=== PATIENT | female | born 1935 | race Caucasian/White ===

== ENCOUNTER 2024-06-22 10:35 | Outpatient (AMB) | payer OTHER, SELFPAY ==
--- NOTE | 2024-06-22 10:53 | A.OFFVIS_ITS ---
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 The patient states that she twisted her knee while getting out of bed in February. At that time she had ?excruciating pain? in her right knee. Over the last few weeks her pain has improved significantly. She reports mild discomfort in her knee. She denies any locking or giving way. She has taken Aleve and Tylenol which gave her mild relief. Allergies No Known Allergies Allergy (Verified 06/22/24 10:57) Medication List - Last Reconciled 06/22/24 by Nahid Morocho MD dorzolamide-timolol 22.3-6.8 mg/mL ophthalmic (eye) Physical Exam Vital Signs: BMI result Body Mass Index 20.4 Const Other: Well-nourished well-developed very friendly female awake alert and oriented x3 in no acute distress Extrem Other: Bilateral lower extremity examination shows good capillary refill, no skin lesions noted, normal sensation light touch Right knee examination shows a minimal effusion, mild crepitus with range of motion, no instability Results Reviewed Results Reviewed: X-rays of the patient's right knee show mild diffuse joint space narrowing, no acute bony abnormalities Assessment & Plan Assessment & Plan (1) Arthritis of right knee: Code(s): M17.11 - Unilateral primary osteoarthritis, right knee Category: Medical Plan Ms. Bazan presents with right knee discomfort due to degenerative joint disease. I had a lengthy discussion with the patient regarding the treatment options. At this point the patient's symptoms are tolerable to her. She will continue with her activity modifications. She will follow up with me on an as- needed basis should her symptoms worsen in any way. Feel free to call me at any time should questions regarding her orthopedic management arise. Thank you very much for asking me to see this very friendly patient. I spent 21 minutes in reviewing the patient's records and imaging studies, seeing the patient and documenting in the medical record. Orders: Orders XR knee RT 3V Today M25.561 - Pain in right knee Coding Level of Care Code New Pt Level 3 (75972) Complex EM visit Add On G2211 Diagnoses Arthritis of right knee M17.11
[2024-06-22 10:56] VITALS: BMI 20.4
--- OUTSIDE RECORDS SUMMARY | 2024-06-22 11:53 | XMS_ITS | Continuity of Care Document ---
Author Organization [facility] Address [address] [place] [address]- Care Team Providers Care Subeditor Name Role Phone Muriel Anderson Primary Care Physician Encounter [facility] Date(s): 02/17/24 - 06/16/24 [facility] [address] [place], [place] [address] Attending Physician: Rene Foley MD Encounter Type: Pre-OutPatient One Time Allergies, Adverse Reactions, Alerts Substance Criticality Severity Reaction Reaction Severity Status Bee Stings Unable to assess criticality Persistent Moderate Swelling Active Immunizations Given and Recorded Vaccine Date Status Refusal Reason influenza virus vaccine, inactivated 12/22/23 Jules rded influenza virus vaccine, inactivated 11/20/22 Jules rded influenza virus vaccine, inactivated 11/23/21 Jules rded influenza virus vaccine, inactivated 11/20/20 Jules rded influenza virus vaccine, inactivated 11/29/19 Jules rded influenza virus vaccine, inactivated 11/15/18 Jules rded influenza virus vaccine, inactivated 12/04/17 Jules rded influenza virus vaccine, inactivated 11/18/16 Jules rded SARS-CoV-2(COVID-19)mRNA-LNP vac([id number]) 11/20/22 Recorded [id number] 12y+ bivalent booster vax 12/09/21 Recorded SARS-CoV-2 (COVID-19) mRNA BNT-162b2 vac 12/26/20 Recorded SARS-CoV-2 (COVID-19) mRNA BNT-162b2 vac 06/09/20 Recorded SARS-CoV-2 (COVID-19) mRNA BNT-162b2 vac 05/18/20 Recorded Medications EpiPen 2-Isma = 0.3 mg, Intramuscular, Once, 0 Refills, Maintenance, 02/13/20 5:44:00 PM EST, Partial fill upon patient request if the prescription is for a schedule II opioid drug. Start Date: 02/13/20 Status: Ordered Repeat number: 1 Istalol 0.5% ophthalmic solution 1 drops, Eyes, Both, Daily in AM, # 5 mL, 0 Refills, Maintenance, 02/13/20 5:37:00 PM EST, Solution, Partial fill upon patient request if the prescription is for a schedule II opioid drug. Start Date: 02/13/20 Status: Ordered Quantity: 5.0 Unit: mL Repeat number: 1 M.V.I. Adult 0 Refills, Maintenance, 02/13/20 5:41:00 PM EST, Partial fill upon patient request if the prescription is for a schedule II opioid drug. Start Date: 02/13/20 Status: Ordered Repeat number: 1 Travatan Z 0.004% ophthalmic solution 1 drops, Daily before dinner, 0 Refills, Maintenance, 02/13/20 5:28:00 PM EST, Partial fill upon patient request if the prescription is for a schedule II opioid drug. Start Date: 02/13/20 Status: Ordered Repeat number: 1 Vitamin C 500 mg oral tablet 1 tablet = 500 mg, By Mouth, Daily, # 90 tablet, 0 Refills, Maintenance, 05/12/23 4:34:00 PM EDT, Tablet, Partial fill upon patient request if the prescription is for a schedule II opioid drug. Start Date: 05/12/23 Status: Ordered Quantity: 90.0 Unit: tablet Repeat number: 1 Vitamin D3 1000 intl units oral capsule 1 capsule = 1,000 International_Units, By Mouth, Daily, # 100 capsule, 0 Refills, Maintenance, 02/13/20 5:41:00 PM EST, Capsule, Partial fill upon patient request if the prescription is for a schedule II opioid drug. 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 2Dermatology???Dr Gerard Medina?? Social History Social History Type Response Smoking Status Never (less than 100 in lifetime) entered on: 11/17/23 Sex Sex Representation Female (finding) Patient Care team information Care Team Personnel Name: Muriel Anderson Position: S PCO Associate Professional Member Role: PCP Address: [address] [place] [address] Telecom: Care Team Related Persons Name: ARON RODRIGUEZ Name: HE RODRIGUEZ Insurance Providers Guarantor name: VINCE RODRIGUEZ Health Plan Information #: 1 Payer: MEDICARE PART B OUTPT Member Number: [id number] Policy Number: NA Group Number: [id number] Plan Information #: 2 Payer: [facility] Member Number: [id number] Policy Number: NA Group Number: [id number]
== END 2024-06-22 11:10 | disposition home or self-care (01) ==
LOC: HO.HOS 10:36
PROVIDERS: Visit Provider Orthopaedic Surgery
DX: M17.11 Unilateral primary osteoarthritis, right knee (principal)
CPT/HCPCS: 99203

== ENCOUNTER → 2024-06-22 10:38 | Outpatient (BNV) | payer OTHER, SELFPAY | PROVIDERS: Visit Provider Radiology Diagnostic Radiology | DX: M25.561 Pain in right knee (principal) | CPT/HCPCS: 73562 ==

== ENCOUNTER 2024-06-22 15:15 | Outpatient (REF) | payer OTHER, SELFPAY ==
--- NOTE | ~2024-06-22 | XR_ITS ---
EXAMINATION: XR KNEE 3 VIEWS RIGHT HISTORY: M25.561 - Pain in right knee COMPARISON: There are no prior studies available for comparison. FINDINGS: Three views of the right knee are submitted. Osseous mineralization is normal. There is no fracture or dislocation. There is mild to moderate narrowing of the medial compartment and mild narrowing of the patellofemoral compartment. A calcification adjacent to the medial femoral condyle may be ligamentous in nature. There is no joint effusion. XR/XR knee RT 3V IMPRESSION: 1. Mild to moderate narrowing of the medial compartment and mild narrowing of the patellofemoral compartment. 2. Probable calcification of the proximal medial collateral ligament. Electronically signed by: Joby Negron MD 06/22/2024 10:52 AM EDT
== END 2024-06-22 15:16 | disposition home or self-care (01) ==
LOC: HO.HOSX 15:15
PROVIDERS: Visit Provider Orthopaedic Surgery
DX: M17.11 Unilateral primary osteoarthritis, right knee (principal)
CPT/HCPCS: 73562